=== PATIENT | male | born 1940 | race Caucasian/White ===

== ENCOUNTER → 2017-09-05 | Outpatient (CLI) | payer MEDICARE, OTHER ==
--- NOTE | 2017-09-05 15:21 | Diagnostic Imaging Report ---
EXAM: Renal Ultrasound INDICATION: \S\URINARY TRACT INFECTION COMPARISON: None TECHNIQUE: Transverse and longitudinal images of the kidneys and bladder were obtained. FINDINGS: Right Kidney: Size: 9.1 cm Echogenicity: Normal Parenchymal thickness: Normal Collecting system: No hydronephrosis Stones: None Cyst/Mass: None Left Kidney: Size: 11 cm Echogenicity: Normal Parenchymal thickness: Normal Collecting system: No hydronephrosis Stones: None Cyst/Mass: None Bladder: Bilateral ureteral jets visualized. Mild wall thickening. Residual postvoid volume of 7 cc. Prostate measures 3.1 x 4.4 x 4.9 cm (35 cc), mildly enlarged. Prostate calcifications. IMPRESSION: Normal renal ultrasound. Mild bladder wall thickening which could represent cystitis in the appropriate clinical setting. Mildly enlarged prostate gland. Signed by: Dr. Riley Brooke MD on 09/05/2017 3:17 PM
== END ==
LOC: US 13:01
PROVIDERS: ATTEND Family Medicine
DX: N39.0 Urinary tract infection, site not specified (principal); N40.1 Benign prostatic hyperplasia with lower urinary tract symptoms
CPT/HCPCS: 76770; 76857